=== PATIENT | male | born 1990 | race Caucasian/White ===

== ENCOUNTER 2021-01-07 18:21 | Emergency (ER) | payer OTHER ==
[2021-01-07 19:26] LABS: BASOPHILS # (AUTO) 0.1 10^3/uL (0.0-0.1); BASOPHILS % (AUTO) 0.6 %; EOSINOPHILS # (AUTO) 0.3 10^3/uL (0.0-0.7); EOSINOPHILS % (AUTO) 3.1 %; HCT - HEMATOCRIT 35.8 % (42.0-52.0); HGB - HEMOGLOBIN 11.8 g/dL (14.0-18.0); LYMPHOCYTES # (AUTO) 1.4 10^3/uL (1.5-3.5); LYMPHOCYTES % (AUTO) 16.4 %; MEAN CORPUSCULAR HEMOGLOBIN 31.1 pg (27.0-31.0); MEAN CORPUSCULAR VOLUME 94.5 fL (80.0-94.0); MEAN PLATELET VOLUME 9.5 fL (7.4-11.4); MONOCYTES # (AUTO) 0.6 10^3/uL (0.0-1.0); MONOCYTES % (AUTO) 6.9 %; NEUTROPHILS # (AUTO) 6.1 10^3/uL (1.5-6.6); NEUTROPHILS % (AUTO) 72.8 %; PLT - PLATELET COUNT 235 10^3/uL (130-450); RED BLOOD COUNT 3.79 10^6/uL (4.70-6.10); RED CELL DISTRIBUTION WIDTH 12.6 % (12.0-15.0); WHITE BLOOD COUNT 8.4 x10^3/uL (4.8-10.8)
[2021-01-07 19:34] LABS: BILIRUBIN,URINE NEGATIVE (NEGATIVE); GLUCOSE, URINE (UA) NEGATIVE (NEGATIVE); KETONES,URINE (UA) TRACE mg/dL (NEGATIVE); LEUKOCYTE ESTERASE, URINE NEGATIVE (NEGATIVE); NITRITE,URINE NEGATIVE (NEGATIVE); OCCULT BLOOD,URINE NEGATIVE (NEGATIVE); PH,URINE 6.5 PH (5.0-7.5); PROTEIN,URINE NEGATIVE (NEGATIVE); UROBILINOGEN,URINE 0.2 (NORMAL) E.U./dL (NORMAL)
[2021-01-07 19:35] LABS: CLARITY,URINE CLEAR (CLEAR)
[2021-01-07 19:43] LABS: ALBUMIN 3.5 g/dL (3.2-5.5); ALBUMIN/GLOBULIN RATIO 1.4 (1.0-2.2); CALCIUM 8.2 mg/dL (8.5-10.3); CREATININE 0.7 mg/dL (0.6-1.2); POTASSIUM 4.1 mmol/L (3.5-5.0)
[2021-01-07] MEDS ORDERED: SODIUM CHLORIDE 0.9% 1,000 ML IV STA (19:58)
[2021-01-07] MEDS ORDERED: PANTOPRAZOLE 40 MG VIAL IVP STA (19:58)
--- NOTE | 2021-01-07 20:05 | ED Physician Documentation ---
PD HPI GI BLEED - Stated complaint Stated Complaint: ABD PX,VOMITING - Chief complaint Chief Complaint: Abd Pain - History obtained from History obtained from: Patient - Additional information Additional information: Patient comes emergency department chief complaint of Vomiting and diarrhea with blood in stool. Patient states that 5 days ago he had a single wisdom tooth removed on the left mandibular, and that he was placed on oxycodone with ibuprofen. He took this throughout the week until being seen 3 days later for follow-up at which time he was switched to oral Toradol. He was taken off the oxycodone to take the Toradol instead. He states he had been quite constipated well on the oxycodone ibuprofen and believes this is why he was switched. That night, he took a natural laxative and all the next day, which was yesterday, he had diarrhea. He continued to take the oral ketorolac throughout this time until now. He states that this morning, he noticed that his stools were black, and then this evening, he began to have bright red stools. He had 2 bright red stools prior to coming in, and states on the way here, he suddenly felt nauseated. He had to pull the car over, at which time he vomited all of the food he had eaten. He states it was red-tinged, but at the same time, he had just had pad tie which was also read. He did not notice any coffee grounds or rosa m blood. He had not taken any Pepto-Bismol or iron supplements prior to the black stools. He states he has a history of gastritis once before, but never had bloody stools like this. He does note that he also received a shot of Toradol at his follow-up appointment 3 days ago. Patient states he has felt generally tired since getting the tooth removed, but states he also has been drinking very much and has hardly been eating. No other complaints at this time. No fevers or chills. No current abdominal pain. He states he has been having an ache in his epigastric area. He does not currently have the urge to have a bowel movement. No history of bleeding disorder and patient is not on anticoagulants. He is otherwise healthy Review of Systems Ten Systems: 10 systems reviewed and negative Constitutional: reports: Reviewed and negative Eyes: reports: Reviewed and negative Ears: reports: Reviewed and negative Nose: reports: Reviewed and negative Throat: reports: Reviewed and negative Cardiac: reports: Reviewed and negative Respiratory: reports: Reviewed and negative GI: reports: Abdominal Pain, Nausea, Vomiting, Diarrhea, Bloody / black stool : reports: Reviewed and negative Skin: reports: Reviewed and negative Musculoskeletal: reports: Reviewed and negative Neurologic: reports: Reviewed and negative Psychiatric: reports: Reviewed and negative Endocrine: reports: Reviewed and negative Immunocompromised: reports: Reviewed and negative PD PAST MEDICAL HISTORY - Past Medical History Cardiovascular: None Respiratory: None Endocrine/Autoimmune: None GI: None : None HEENT: None Psych: None Musculoskeletal: None Derm: None - Past Surgical History Past Surgical History: No - Present Medications Home Medications: Ambulatory Orders Medication Instructions Recorded Confirmed Ondansetron Odt [Zofran] 4 mg TL Q6H PRN #10 tablet 07/18/14 Ondansetron Odt [Zofran] 4 mg TL Q6H PRN #10 tablet 01/07/21 - Allergies Allergies/Adverse Reactions: Allergies Allergy/AdvReac Type Severity Reaction Status Date / Time No Known Drug Allergies Allergy Verified 01/07/21 18:38 - Social History Does the pt smoke?: Yes Smoking Status: Current every day smoker Does the pt drink ETOH?: No Does the pt have substance abuse?: No - Immunizations Immunizations are current?: Yes - POLST Patient has POLST: No PD ED PE NORMAL - Vitals Vital signs reviewed: Yes - General General: Alert and oriented X 3, No acute distress, Well developed/nourished - HEENT HEENT: Atraumatic, PERRL, EOMI, Moist mucous membranes - Neck Neck: Supple, no meningeal sign - Cardiac Cardiac: RRR, No murmur - Respiratory Respiratory: No respiratory distress, Clear bilaterally - Abdomen Abdomen: Soft, Non distended, Other (Slight, perixiphoid. No rebound or guarding.) - Rectal Rectal: Other (deferred, due to direct visualization of bloody output when pt defecated here.) - Derm Derm: Normal color (pink fingers, nailbeds; pink lips and cheeks), Warm and dry, No rash - Extremities Extremities: No deformity, No edema - Neuro Neuro: Alert and oriented X 3 - Psych Psych: Normal mood, Normal affect Results - Vitals Vitals: Vital Signs - 24 hr 01/07/21 23:00 Temperature 36.7 C Heart Rate 86 Respiratory 16 Rate Blood Pressure 135/86 H O2 Saturation 98 Oxygen O2 Source Room air - Labs Labs: Laboratory Tests 01/07/21 01/07/21 01/07/21 19:19 19:20 19:20 WBC 8.4 RBC 3.79 L Hgb 11.8 L Hct 35.8 L MCV 94.5 H MCH 31.1 H MCHC 33.0 RDW 12.6 Plt Count 235 MPV 9.5 Neut # (Auto) 6.1 Lymph # (Auto) 1.4 L [place] # (Auto) 0.6 Eos # (Auto) 0.3 Baso # (Auto) 0.1 Absolute Nucleated RBC 0.00 Nucleated RBC % 0.0 Sodium 134 L Potassium 4.1 Chloride 104 Carbon Dioxide 25 Anion Gap 5.0 L BUN 24 H Creatinine 0.7 Estimated GFR (MDRD) 132 Glucose 111 H Calcium 8.2 L Total Bilirubin 1.0 AST 20 ALT 28 Alkaline Phosphatase 31 L Total Protein 6.0 L Albumin 3.5 Globulin 2.5 Albumin/Globulin Ratio 1.4 Lipase 23 Urine Color YELLOW Urine Clarity CLEAR Urine pH 6.5 Ur Specific [place] 1.020 Urine Protein NEGATIVE Urine Glucose (UA) NEGATIVE Urine Ketones TRACE Urine Occult Blood NEGATIVE Urine Nitrite NEGATIVE Urine Bilirubin NEGATIVE Urine Urobilinogen 0.2 (NORMAL) Ur Leukocyte Esterase NEGATIVE Ur Microscopic Review NOT INDICATED Urine Culture Comments NOT INDICATED Blood Type Blood Type Recheck Antibody Screen 01/07/21 01/07/21 01/07/21 19:20 22:11 22:11 WBC 9.6 RBC 3.56 L Hgb 11.4 L Hct 33.7 L MCV 94.7 H MCH 32.0 H MCHC 33.8 RDW 12.6 Plt Count 235 MPV 9.2 Neut # (Auto) 6.7 H Lymph # (Auto) 2.0 [place] # (Auto) 0.6 Eos # (Auto) 0.2 Baso # (Auto) 0.0 Absolute Nucleated RBC 0.00 Nucleated RBC % 0.0 Sodium Potassium Chloride Carbon Dioxide Anion Gap BUN Creatinine Estimated GFR (MDRD) Glucose Calcium Total Bilirubin AST ALT Alkaline Phosphatase Total Protein Albumin Globulin Albumin/Globulin Ratio Lipase Urine Color Urine Clarity Urine pH Ur Specific [place] Urine Protein Urine Glucose (UA) Urine Ketones Urine Occult Blood Urine Nitrite Urine Bilirubin Urine Urobilinogen Ur Leukocyte Esterase Ur Microscopic Review Urine Culture Comments Blood Type A POSITIVE Blood Type Recheck A POSITIVE Antibody Screen NEGATIVE PD MEDICAL DECISION MAKING - ED course Complexity details: reviewed results, re-evaluated patient, considered differential, d/w patient ED course: The patient's vital signs were normal during my exam, with normal blood pressure and normal heart rate. Patient overall appeared well, and I suspected that the ibuprofen followed by multiple doses of oral ketorolac every day were likely the culprits for the patient's GI bleed. I did work him up with laboratory studies, including CBC, which showed hemoglobin of 11.8. No priors were available for comparison. The patient was given a bolus of 0.9 normal saline, as well as Protonix. He had 1 more bloody bowel movement here in the emergency department, but his vital signs remained exactly the same and normal and patient stated he felt completely fine, including while getting up to the bathroom. I did repeat an H&H and found the patient's hemoglobin to be 11.4. Some of this i s likely attributable to the liter of normal saline that he got, although some of the drop is likely due to blood loss. I discussed with the patient that given that he has had 3 frankly bloody stools, and he has had a measurable bowl drop in his hemoglobin, even though hemoglobin is not drastically low, admission to the hospital for serial H&H's and observation would be the most conservative and safest course of action. The patient is very concerned because his is going to see an oncologist urgently down in [place], [place], tomorrow and he needs to be able to drive her there. He states that he would rather go home, stop taking the Toradol, and see how he is doing. The patient does have normal vital signs and is completely asymptomatic, other than the stools. He has a hemoglobin that is close to normal, though slightly low and has dropped a little bit in the emergency department, likely as a combination of the ongoing bloody stools and of IV hydration. The patient has an appointment with his dentist tomorrow morning. He also states that if he continues to have the bloody stools that he will not hesitate to return, either to this emergency department or another one if he is on his way to [place]. On further discussion with the patient, I do feel this is reasonable, given that the patient is asymptomatic, stable, and has very clearly definable and most likely cause for his lower GI bleeding, in addition to the fact that the pt expresses full understanding and seems very reliable. We have discussed strict indications for return to the emergency department. Departure - Departure Disposition: 01 Home, Self Care Clinical Impression: Acute lower GI bleeding, Anemia, mild Condition: Stable Instructions: ED Hematochezia Stable Prescriptions: Ondansetron Odt [Zofran] 4 mg TL Q6H PRN #10 tablet PRN Reason: Nausea / Vomiting Comments: Your blood work shows that you have very mild anemia, or low red blood cells. This did get a little bit lower in the emergency department over the course your stay, but may partly be related to the fact that we gave you a full liter of normal saline here. Your vital signs are also stable and you do not have any symptoms related to the bleeding. At this point, it would be very reasonable to keep you in the hospital to monitor your bleeding in your red blood cell levels; however, since you have a pressing need to get to [place] tomorrow you have opted to monitor at home. Please have a very low threshold for return to the emergency department. Specifically, if you have several more episodes of bloody output that is significant overnight, and you are starting to have a worsening sense of lightheadedness or fatigue, then please return to the emergency department. Otherwise, you may continue your plans to drive to [facility] with the understanding that if anything gets worse, you need to go to the nearest emergency department. The most effective way to get her bleeding to stop is to avoid all nonsteroidal anti-inflammatories, including ibuprofen, aspirin, naproxen, and the ketorolac you were prescribed. Please do not under any circumstances take any of these medications for now. You should also never take ketorolac again. You may use Tylenol for your pain, as this is not related to the nonsteroidal anti-inflammatories, and does not have a blood thinning or pro bleeding affect. Please continue your plans to follow-up with your oral surgeon tomorrow morning. Discharge Date/Time: 01/07/21 23:28
[2021-01-07 22:17] LABS: BASOPHILS % (AUTO) 0.4 %; EOSINOPHILS # (AUTO) 0.2 10^3/uL (0.0-0.7); EOSINOPHILS % (AUTO) 2.5 %; HCT - HEMATOCRIT 33.7 % (42.0-52.0); HGB - HEMOGLOBIN 11.4 g/dL (14.0-18.0); LYMPHOCYTES % (AUTO) 20.8 %; MEAN CORPUSCULAR HGB CONC 33.8 g/dL (32.0-36.0); MEAN CORPUSCULAR VOLUME 94.7 fL (80.0-94.0); MEAN PLATELET VOLUME 9.2 fL (7.4-11.4); MONOCYTES # (AUTO) 0.6 10^3/uL (0.0-1.0); MONOCYTES % (AUTO) 6.6 %; NEUTROPHILS # (AUTO) 6.7 10^3/uL (1.5-6.6); NEUTROPHILS % (AUTO) 69.4 %; PLT - PLATELET COUNT 235 10^3/uL (130-450); RED BLOOD COUNT 3.56 10^6/uL (4.70-6.10); RED CELL DISTRIBUTION WIDTH 12.6 % (12.0-15.0); WHITE BLOOD COUNT 9.6 x10^3/uL (4.8-10.8)
[2021-01-07 23:06] VITALS: BP 135/86
[2021-01-07] MEDS ORDERED: ONDANSETRON ODT 4 MG Prepack 2 TL PRN (23:13)
== END 2021-01-07 23:28 | disposition home or self-care (01) ==
LOC: ED 18:21
DX: K92.2 Gastrointestinal hemorrhage, unspecified (principal); D64.9 Anemia, unspecified; F17.200 Nicotine dependence, unspecified, uncomplicated
CPT/HCPCS: 36415; 80053; 81001; 81003; 83690; 85025; 86850; 86900; 86901; 87086; 96361; 96374; 99284